=== PATIENT | female | born 1990 | race African-American/Black ===

== ENCOUNTER 2021-02-01 08:08 | Emergency (ER) | payer OTHER ==
[~2021-02-01] VITALS: Ht 154.9 cm; Wt 63.6 kg
[2021-02-01 08:42] VITALS: BP 114/66
--- NOTE | 2021-02-01 09:45 | REP ---
INDICATION: fall, knee pain COMPARISON: None. TECHNIQUE: AP, lateral, bilateral oblique and sunrise views. FINDINGS: The osseous structures and joint spaces are intact and normal. There is no evidence for acute fracture or dislocation. No joint effusion is appreciated. Surrounding soft tissues are unremarkable. No subcutaneous emphysema or radiodense foreign body. IMPRESSION: Normal left knee examination. No acute fracture or dislocation. <Electronically signed by Olayinka Flowers > 02/01/21 0970
--- NOTE | 2021-02-01 09:47 | REP ---
INDICATION: fall and struck head. COMPARISON: None. TECHNIQUE: Helical scanning is acquired. 5 mm axial images were reformatted. Coronal MPR images were generated. FINDINGS: Bone window settings demonstrate an intact bony calvarium. There is no evidence of skull fracture or incidental bony calvarial lesion. The visualized paranasal sinuses appear clear. No intraorbital abnormality is seen. On soft tissue window setting images; the lateral, third, and fourth ventricles are normal in size and position. Babin-white differentiation pattern is normal above and below the tentorium. There are is no evidence of intracranial hemorrhage. No mass, edema, infarction, or midline shift is seen. No extra-axial fluid collection is appreciated. IMPRESSION: Negative noncontrast head CT. <Electronically signed by Rafi Ruiz > 02/01/21 0990
== END 2021-02-01 10:48 | disposition home or self-care (01) ==
LOC: M ED 08:08 → EDBD 08:08 → M ED 10:48
DX: S80.02XA Contusion of left knee, initial encounter (principal); S09.90XA Unspecified injury of head, initial encounter; W01.0XXA Fall on same level from slipping, tripping and stumbling without subsequent striking against object, initial encounter; Y99.1 Military activity; Y92.9 Unspecified place or not applicable; Y93.9 Activity, unspecified